=== PATIENT | female | born 1950 | race Caucasian/White ===

== ENCOUNTER 2016-10-06 16:05 | Emergency (ER) | payer MEDICARE, MEDICAID ==
[~2016-10-06] VITALS: Ht 160 cm; Wt 85.0 kg
[~2016-10-06 16:05] MED LIST: ASPIRIN LOW DOS81 M2 PO; CIPRO500 MG OR; FLEXERIL PO; FLEXERIL5 MG PO; IBUPROFEN600 MG PO; LIPITOR80 M1; LIPITOR80 M1 PO; LISINOP/HCTZ1 TAB PO; LOMOTIL2.5 MG OR; MECLIZINE25 MG PO; MEDDOSEPAK PO; NAPROSYN500 MG PO; NAPROXEN500 MG PO; NO HOME MEDS; PERCOCET 10/31 COMBO PO; PROMETHAZINE25 MG OR; RESTORIL15 M1 PO; SIMVASTATIN10 MG PO; SIMVASTATIN20 MG PO; SMZ-TMP DS1 TAB PO; TORADOL PO; TRAMADOL HCL50 MG PO; TRIAMCINOLON0.11 EX; ULTRAM50 M1 PO; ZOCOR20 MG PO; ZOLOFT50 MG PO
[2016-10-06] MEDS ORDERED: LORTAB 5-325 MG1 TAB PO (16:54)
[2016-10-06] MEDS ORDERED: EC-NAPROSYN500 MG PO (16:54)
[2016-10-06 17:10] VITALS: BP 150/81
== END 2016-10-06 17:10 | disposition home or self-care (01) ==
LOC: ED 16:05
DX: S83.92XA Sprain of unspecified site of left knee, initial encounter (principal); W01.0XXA Fall on same level from slipping, tripping and stumbling without subsequent striking against object, initial encounter; Y93.E5 Activity, floor mopping and cleaning; Y92.009 Unspecified place in unspecified non-institutional (private) residence as the place of occurrence of the external cause

== ENCOUNTER 2017-04-06 11:28 | Emergency (ER) | payer MEDICARE, MEDICAID ==
[~2017-04-06] VITALS: Ht 160 cm; Wt 85.0 kg
[~2017-04-06 11:28] MED LIST changes: +EC-NAPROSYN500 MG PO; +LORTAB 5-325 MG1 TAB PO
[2017-04-06 12:04] LABS: HEMOGLOBIN 13.7 g/dl (12.0-16.0); IMMATURE GRANULOCYTES 0.3 % (0.0-1.0); MEAN CELL VOLUME 90.1 fL CALC (80.0-100.0); MEAN CORPUSCULAR HGB 28.7 pG CALC (26.0-32.0); MEAN CORPUSCULAR HGB CONC 31.9 g/L CALC (32.0-36.0); NEUT# 6.94 thou/uL (2.00-7.15); RED BLOOD COUNT 4.77 mill/uL (4.20-5.60); RED CELL DISTRI WIDTH 14.5 % (11.5-15.5)
[2017-04-06 12:20] LABS: ALBUMIN 4.2 g/dL (3.2-5.0); ALKALINE PHOSPHATASE 102 u/l (38-126); ANION GAP 17 (6-22 (CALC)); BILIRUBIN, TOTAL 0.4 mg/dL (0.0-1.4); BUN 17 mg/dL (8-23); BUN/CREATININE RATIO 21 (12-20 (CALC)); CARBON DIOXIDE 19 mmol/l (22-30); CHLORIDE 110 mmol/l (95-108); CREATININE 0.8 mg/dL (0.5-1.0); GFR > 60 ML/MIN (>=60 (CALC)); GFR FOR AFR.AMER. > 60 ML/MIN (>=60 (CALC)); POTASSIUM 3.2 mmol/l (3.5-5.1); SGOT/AST 18 u/l (9-36); SGPT/ALT 18 u/l (11-66); SODIUM 143 mmol/l (137-146); TOTAL PROTEIN 7.1 g/dL (6.3-8.2)
[2017-04-06 12:31] LABS: MYOGLOBIN 27 ng/mL (0 - 62)
[2017-04-06 16:47] LABS: URINE BILIRUBIN - DIPSTICK NEGATIVE (NEGATIVE); URINE BLOOD DIPSTICK NEGATIVE (NEGATIVE); URINE COLOR YELLOW; URINE GLUCOSE - DIPSTICK NEGATIVE (NEGATIVE); URINE KETONE NEGATIVE (NEGATIVE); URINE LEUK ESTERASE NEGATIVE (NEGATIVE); URINE NITRITE - DIPSTICK NEGATIVE (Negative); URINE PROTEIN - DIPSTICK NEGATIVE (NEG-TRACE); URINE SPECIFIC GRAVITY 1.025; URINE UROBILINOGEN - DIPSTICK 0.2 E.U./dL (0.2)
[2017-04-06 16:56] LABS: URINE CLARITY CLEAR
[2017-04-06 17:00] VITALS: BP 182/85
== END 2017-04-06 16:50 | disposition short-term general hospital (02) ==
LOC: ED 11:28
PROVIDERS: Emergency Medicine
DX: I21.4 Non-ST elevation (NSTEMI) myocardial infarction (principal); I25.10 Atherosclerotic heart disease of native coronary artery without angina pectoris; E78.5 Hyperlipidemia, unspecified; M19.90 Unspecified osteoarthritis, unspecified site; F17.210 Nicotine dependence, cigarettes, uncomplicated; I25.2 Old myocardial infarction
CPT/HCPCS: J0282; J1650

== ENCOUNTER → 2018-04-04 | Outpatient (REF) | payer MEDICARE, MEDICAID ==
[2018-04-04 10:58] LABS: HEMATOCRIT 42.8 % (37.0-47.0); HEMOGLOBIN 13.8 g/dl (12.0-16.0); IMMATURE GRANULOCYTES 0.2 % (0.0-5.0); MEAN CELL VOLUME 89.4 fL CALC (80.0-100.0); MEAN CORPUSCULAR HGB 28.8 pG CALC (26.0-32.0); MEAN CORPUSCULAR HGB CONC 32.2 g/L CALC (32.0-36.0); NEUT# 5.4 thou/uL (2.00-7.15); RED BLOOD COUNT 4.79 mill/uL (4.20-5.60); RED CELL DISTRI WIDTH 14.6 % (11.5-15.5)
[2018-04-04 12:00] LABS: ALBUMIN 4.2 g/dL (3.2-5.0); ALKALINE PHOSPHATASE 96 u/l (38-126); ANION GAP 15 (6-22 (CALC)); BILIRUBIN, TOTAL 0.6 mg/dL (0.0-1.4); BUN 11 mg/dL (8-23); BUN/CREATININE RATIO 15 (12-20 (CALC)); CALCULATED LDLCHOLESTEROL 118 mg/dL (62-129 (CALC)); CARBON DIOXIDE 26 mmol/l (22-30); CHLORIDE 104 mmol/l (95-108); CHOLESTEROL HDL RATIO 4.8 (<4.4 (CALC)); CREATININE 0.7 mg/dL (0.5-1.0); GFR > 60 ML/MIN (>=60 (CALC)); GFR FOR AFR.AMER. > 60 ML/MIN (>=60 (CALC)); HDL CHOLESTEROL 43 mg/dL (>=40); POTASSIUM 3.4 mmol/l (3.5-5.1); SGOT/AST 16 u/l (9-36); SODIUM 142 mmol/l (137-146); TOTAL CHOLESTEROL 203 mg/dl (0-199); TOTAL PROTEIN 7.2 g/dL (6.3-8.2); TRIGLYCERIDES REFLEX TO dLDL 210 mg/dl (30-149); VLDL CHOLESTROL 42 mg/dl (1-41 (CALC))
== END | disposition home or self-care (01) ==
LOC: LAB 10:26
PROVIDERS: ATTEND Internal Medicine Geriatric Medicine
DX: E78.2 Mixed hyperlipidemia (principal); I10 Essential (primary) hypertension

== ENCOUNTER 2022-05-21 22:24 | Emergency (ER) | payer MEDICARE, MEDICAID ==
[~2022-05-21] VITALS: Ht 160 cm; Wt 73.0 kg
[2022-05-21] MEDS ORDERED: PREDNISONE50 MG PO (22:39)
[2022-05-21 22:59] VITALS: BP 150/65
== END 2022-05-21 23:05 | disposition home or self-care (01) ==
LOC: ED 22:24
DX: S90.862A Insect bite (nonvenomous), left foot, initial encounter (principal); I10 Essential (primary) hypertension; I25.10 Atherosclerotic heart disease of native coronary artery without angina pectoris; E78.5 Hyperlipidemia, unspecified; F17.200 Nicotine dependence, unspecified, uncomplicated; W57.XXXA Bitten or stung by nonvenomous insect and other nonvenomous arthropods, initial encounter; Z95.5 Presence of coronary angioplasty implant and graft